=== PATIENT | female | born 1985 | race Asian ===

== ENCOUNTER 2023-08-21 20:47 | Emergency (ER) | payer OTHER ==
[~2023-08-21] VITALS: Ht 167.6 cm; Wt 100.7 kg
[~2023-08-21 20:47] MED LIST: ADDERALL30 MG PO; TRAZODONE50 MG PO; ZOFRAN ODT4 MG SL
[2023-08-21] MEDS ORDERED: SLYND4 MG PO (20:55)
[2023-08-21] MEDS ORDERED: DULOXETINE HCL60 MG PO (21:01)
[2023-08-21] MEDS ORDERED: Acetaminophen/Oxycodone 5 MG/325 MG TABLET PO ONE (23:50)
== END 2023-08-22 02:15 | disposition short-term general hospital (02) ==
LOC: ED 20:47
DX: S32.019A Unspecified fracture of first lumbar vertebra, initial encounter for closed fracture (principal); R51.9 Headache, unspecified; R11.0 Nausea; V43.62XA Car passenger injured in collision with other type car in traffic accident, initial encounter; Y93.89 Activity, other specified; Y92.410 Unspecified street and highway as the place of occurrence of the external cause; Y99.8 Other external cause status

== ENCOUNTER → 2024-08-14 | Outpatient (CLI) | payer OTHER ==
[~2024-08-14] MED LIST changes: +DULOXETINE HCL60 MG PO; +SLYND4 MG PO
[2024-08-14 17:29] LABS: BASO # 0.1 10*3/uL (0.0-0.1); BASO % 0.8 % (0.0-1.0); EOS # 0.3 10*3/uL (0.0-0.4); EOS % 2.7 % (1.0-4.0); HEMATOCRIT 42.8 % (37.0-47.0); MEAN CELL VOLUME 84.3 fl (81.0-99.0); MEAN CORPUSCULAR HGB 25.4 pg (27.0-31.0); MEAN CORPUSCULAR HGB CONC 30.1 g/dl (33.0-37.0); MEAN PLATELET VOLUME 8.8 fl (9.6-12.3); MONO # 0.5 10*3/uL (0.1-1.0); NEUT # 6.9 10*3/uL (2.3-7.9); NEUT % 66.6 % (47.0-73.0); PLATELET COUNT AUTOMATED 513 10*3/uL (130-400); RED BLOOD COUNT 5.08 10*6/uL (4.10-5.10); RED CELL DISTRI WIDTH 14.1 % (0-14.5); WHITE BLOOD COUNT 10.3 10*3/uL (4.8-10.8)
[2024-08-14 17:42] LABS: ALKALINE PHOSPHATASE 69 U/L (46-116); BUN 15 mg/dl (9-23); CHLORIDE 105 mmol/L (98-107); CHOLESTEROL 208 mg/dL (<200); LDL CHOLESTEROL 127 mg/dL (9-159); POTASSIUM 4.3 mmol/L (3.4-5.1); SGPT/ALT 32 U/L (5-49); TOTAL PROTEIN 7.8 gm/dL (6.0-8.0); TRIGLYCERIDES 173 mg/dl (<150)
== END | disposition home or self-care (01) ==
LOC: LAB 09:35
PROVIDERS: ATTEND Nurse Practitioner Family
DX: Z13.0 Encounter for screening for diseases of the blood and blood-forming organs and certain disorders involving the immune mechanism (principal); Z13.29 Encounter for screening for other suspected endocrine disorder; Z13.228 Encounter for screening for other metabolic disorders; Z76.89 Persons encountering health services in other specified circumstances; Z13.220 Encounter for screening for lipoid disorders

== ENCOUNTER → 2025-06-02 | Outpatient (CLI) | payer OTHER ==
[2025-06-02 12:12] LABS: BASO # 0.1 10*3/uL (0.0-0.1); BASO % 0.6 % (0.0-1.0); EOS # 0.2 10*3/uL (0.0-0.4); EOS % 3.0 % (1.0-4.0); MEAN CELL VOLUME 82.8 fl (81.0-99.0); MEAN CORPUSCULAR HGB 26.4 pg (27.0-31.0); MEAN PLATELET VOLUME 9.0 fl (9.6-12.3); MONO # 0.5 10*3/uL (0.1-1.0); MONO % 5.8 % (3.0-9.0); NEUT # 4.7 10*3/uL (2.3-7.9); NEUT % 60.5 % (47.0-73.0); NUCLEATED RED BLOOD CELL 0.0 % (0.0-0.0); NUCLEATED RED BLOOD CELL 0.0 10*3/uL (0.0-0.0); PLATELET COUNT AUTOMATED 358 10*3/uL (130-400); RED CELL DISTRI WIDTH 14.0 % (0-14.5)
[2025-06-02 12:22] LABS: BUN 14 mg/dl (9-23); SGPT/ALT 13 U/L (5-49)
== END | disposition home or self-care (01) ==
LOC: RHCWE 09:11
PROVIDERS: ATTEND Nurse Practitioner Family
DX: Z00.00 Encounter for general adult medical examination without abnormal findings (principal); R73.03 Prediabetes; E66.01 Morbid (severe) obesity due to excess calories; F90.9 Attention-deficit hyperactivity disorder, unspecified type